=== PATIENT | female | born 1995 | race African-American/Black ===

== ENCOUNTER 2023-04-08 15:16 | Outpatient (CLI) | payer OTHER ==
[2023-04-08 16:37] LABS: Hematocrit 35.5 % (34.9-44.5); Hemoglobin 11.3 g/dL (12.0-15.5); Mean Corpuscular HGB CONC 31.8 g/dL (32.0-36.0); Mean Corpuscular Hemoglobin 23.4 pg (27.0-33.0); Mean Corpuscular Volume 73.5 fl (81.6-98.3); Mean Platelet Volume 11.7 fl (7.4-10.4); Platelet Count 247 10x3/uL (150-450); Red Blood Cell (RBC) Count 4.83 10x6/uL (3.90-5.03); White Blood Cell (WBC) Count 4.2 10x3/uL (3.5-10.5)
[2023-04-08 17:01] LABS: BHCG - Serum Negative (NEGATIVE); Pregs Control Background? CLEAR/WHITE (CLR/WHITE); Pregs Control Bar Appear? YES (CONTROL BAR)
== END 2023-04-08 15:17 | disposition home or self-care (01) ==
LOC: CSHLAB 15:16
PROVIDERS: ATTEND Obstetrics & Gynecology
DX: Z01.812 Encounter for preprocedural laboratory examination (principal); N84.0 Polyp of corpus uteri
CPT/HCPCS: 84703; 85027; 86850; 86900; 86901

== ENCOUNTER 2023-04-10 07:49 | Day surgery (SDC) | payer OTHER ==
[2023-04-08 15:50] VITALS: BMI 22.3
[2023-04-10] MEDS ORDERED: CeleCOXIB 100 MG CAP ONE (08:00)
[2023-04-10] MEDS ORDERED: Famotidine/PF 20 mg/2ml Vial ONE (08:00)
[2023-04-10] MEDS ORDERED: PROPOFOL 20 ML ONE (09:16)
[2023-04-10] MEDS ORDERED: Ketorolac Tromethamine 30 MG/ML VIAL ONE (09:16)
[2023-04-10] MEDS ORDERED: Lidocaine 1% PF 5 ML VIAL ONE (09:16)
[2023-04-10] MEDS ORDERED: Ondansetron PF 4 MG/2 ML Vial ONE (09:16)
[2023-04-10] MEDS ORDERED: Dexamethasone 20 MG/5 ML VIAL ONE (09:16)
[2023-04-10] MEDS ORDERED: Midazolam HCl 2 mg/2 ml Vial ONE (09:16)
[2023-04-10] MEDS ORDERED: fentaNYL 50 mcg/mL 1 mL Vial ONE (09:16)
[2023-04-10] MEDS ORDERED: Tranexamic Acid 1,000 MG/10 ML VIAL ONE (09:50)
== END 2023-04-10 12:20 | disposition home or self-care (01) ==
LOC: CSHSDC 07:49
PROVIDERS: ATTEND Obstetrics & Gynecology
PROC: 10P00YZ Removal of Other Device from Products of Conception, Open Approach (ICD-10-PCS; principal; 2023-04-10)
DX: N84.0 Polyp of corpus uteri (principal); T83.32XA Displacement of intrauterine contraceptive device, initial encounter; Z30.432 Encounter for removal of intrauterine contraceptive device; Z91.041 Radiographic dye allergy status
CPT/HCPCS: 88305; J1100; J1885; J2250; J2405; J2704; J3010; S0028

== ENCOUNTER 2023-04-13 06:41 | Emergency (ER) | payer OTHER ==
[2023-04-13 07:55] LABS: ALT (SGPT) 14 U/L (8-55); AST (SGOT) 17 U/L (5-34); Alkaline Phosphatase 53 U/L (40-110); Anion Gap 15 mmol/L (10-20); BUN (Urea Nitrogen) 7 mg/dL (7.0-18.7); Bilirubin, Total 0.5 mg/dL (0.2-1.2); Calc. Creatinine Clearance 0 mL/min (70-130); Carbon Dioxide 23 mmol/L (22-29); Chloride 106 mmol/L (98-107); Estimated GFR 98; Globulin 3.2 g/dL (2.4-3.5); Glucose 95 mg/dL (70-105); Potassium 3.8 mmol/L (3.5-5.1); Protein, Total 7.2 g/dL (6.0-8.3); Sodium 140 mmol/L (136-145)
[2023-04-13 08:03] LABS: Hematocrit 29.3 % (34.9-44.5); Hemoglobin 9.5 g/dL (12.0-15.5); Mean Corpuscular HGB CONC 32.4 g/dL (32.0-36.0); Mean Corpuscular Hemoglobin 23.6 pg (27.0-33.0); Mean Corpuscular Volume 72.7 fl (81.6-98.3); RBC Distribution Width 13.9 % (11.5-14.5); Red Blood Cell (RBC) Count 4.03 10x6/uL (3.90-5.03); White Blood Cell (WBC) Count 6.8 10x3/uL (3.5-10.5)
[2023-04-13 08:05] LABS: #Eosinphils 0.3 10x3/uL (0.0-0.5); #Monocytes 0.6 10x3/uL (0.0-1.1); #Neutrophils 4.4 10x3/uL (1.5-8.4); %Basophils 0.4 % (0.0-2.0); %Eosinophils 3.7 % (0.0-6.0); %Lymphocytes 22.4 % (18.0-47.0); %Monocytes 8.3 % (0.0-10.0); %Neutrophils 64.9 % (40.0-75.0)
[2023-04-13 09:00] LABS: Platelet Count 112 10x3/uL (150-450)
[2023-04-13 09:01] LABS: Microcytosis MODERATE=15-30 cells (100X) (0-5/hpf)
[2023-04-13 09:05] LABS: Platelet Adequacy Comment Appears Decreased
[2023-04-13] MEDS ORDERED: Tranexamic Acid 1,000 MG in Sodium Chloride 0.9% 250 ML 250 ML IVPB SCH (10:15)
[2023-04-13] MEDS ORDERED: Ondansetron PF 4 MG/2 ML Vial ONE (11:23)
== END 2023-04-13 11:50 | disposition home or self-care (01) ==
LOC: CSHERS 06:41
DX: N93.9 Abnormal uterine and vaginal bleeding, unspecified (principal)
CPT/HCPCS: 76856; 80053; 85025; 96374; 96375; J2405; J7050